=== PATIENT | male | born 1980 | race Caucasian/White ===

== ENCOUNTER 2025-05-13 13:07 | Emergency (ER) | payer OTHER ==
[~2025-05-13] VITALS: Ht 180.3 cm; Wt 90.1 kg
[2025-05-13] MEDS: FAMOTIDINE 20 MG/2 ML VIAL IVP ONE (14:09)
[2025-05-13] MEDS ORDERED: EPIP0.3I2 IM (16:09)
[2025-05-13 16:20] VITALS: BP 120/73; TEMP 97.7; O2SAT 99
== END 2025-05-13 16:25 | disposition home or self-care (01) ==
LOC: M ED 13:07 → EDBD 13:07 → M ED 16:25
DX: T78.40XA Allergy, unspecified, initial encounter (principal); T63.441A Toxic effect of venom of bees, accidental (unintentional), initial encounter; F17.290 Nicotine dependence, other tobacco product, uncomplicated; Z91.030 Bee allergy status; Z79.899 Other long term (current) drug therapy
CPT/HCPCS: 93005; 93041; 94760; 96374; 99285; J1308